=== PATIENT | female | born 1990 | race African-American/Black ===

== ENCOUNTER 2018-01-09 19:17 | Emergency (ER) | payer OTHER ==
[~2018-01-09] VITALS: Ht 172.7 cm; Wt 70.3 kg
[~2018-01-09 19:17] MED LIST: PRENATAL PO
[2018-01-09 19:25] VITALS: BP 122/84
[2018-01-09 19:43] LABS: URINE BILIRUBIN NEGATIVE (Negative); URINE BLOOD 1+ (Negative); URINE CLARITY CLEAR; URINE COLOR YELLOW; URINE GLUCOSE-RANDOM* NEGATIVE (Negative); URINE KETONES TRACE (Negative); URINE NITRITE-REFLEX NEGATIVE (Negative); URINE PROTEIN (DIPSTICK) NEGATIVE (Negative); URINE UROBILINOGEN 0.2 E.U./dl (0.2-1.0)
[2018-01-09 19:45] LABS: URINE LEUKOCYTES-REFLEX 3+ (Negative)
[2018-01-09 19:49] LABS: SQUAMOUS 0-3 Few /LPF (0-3); URINE WBC-REFLEX 6-15 Few /HPF (0-5)
[2018-01-09 19:50] LABS: BACTERIA-REFLEX 1-9 Few /HPF (None Seen); CASTS None Seen /LPF (None Seen); CRYSTALS None Seen /LPF (None Seen); URINE RBC 0-2 Rare /HPF (0-2)
[2018-01-09 20:22] LABS: ABSOLUTE NEUTROPHILS 13.4 thou/uL (1.4-8.2); BASOPHILS 0.3 % (0.0-2.0); EOSINOPHILS 0.3 % (0.0-3.0); HEMATOCRIT 31.8 % (37.0-47.0); LYMPHOCYTES 7.9 % (24.0-44.0); MCH 29.6 pg (26.0-34.0); MCHC 34.5 g/dL (28.0-37.0); MCV 85.6 fL (80.0-100.0); MONOCYTES 7.6 % (1.0-8.0); PLATELET COUNT 243 thou/uL (150-400); POLYS 83.9 % (36.0-66.0); RBC 3.72 mil/uL (4.20-5.00); RDW 12.6 % (10.5-14.5)
[2018-01-09 20:26] LABS: CALCIUM 9.2 mg/dL (8.5-10.1); CREATININE 0.5 mg/dL (0.6-1.0); POTASSIUM 3.4 mmol/L (3.5-5.1)
[2018-01-09 20:32] LABS: ALBUMIN 2.9 g/dL (3.4-5.0); TOTAL BILIRUBIN 0.5 mg/dL (<0.1-1.0); TOTAL PROTEIN 6.9 g/dL (6.4-8.2)
[2018-01-09 22:42] VITALS: BP 128/70
== END 2018-01-09 22:43 | disposition short-term general hospital (02) ==
LOC: EDBD 19:17 → ER 19:17 → EROBS 20:54
PROVIDERS: Physician Assistant
DX: O23.12 Infections of bladder in pregnancy, second trimester (principal); Z3A.16 16 weeks gestation of pregnancy; N12 Tubulo-interstitial nephritis, not specified as acute or chronic; O26.892 Other specified pregnancy related conditions, second trimester; M62.830 Muscle spasm of back; R00.0 Tachycardia, unspecified

== ENCOUNTER 2019-04-14 16:54 | Emergency (ER) | payer OTHER ==
[~2019-04-14] VITALS: Ht 170.2 cm; Wt 64.4 kg
[2019-04-14] MEDS ORDERED: IBUPROFEN 600600 M1 PO (19:59)
[2019-04-14 20:56] VITALS: BP 125/77
== END 2019-04-14 21:10 | disposition home or self-care (01) ==
LOC: ER 16:54
DX: S39.012A Strain of muscle, fascia and tendon of lower back, initial encounter (principal); S29.012A Strain of muscle and tendon of back wall of thorax, initial encounter; S50.12XA Contusion of left forearm, initial encounter; S50.11XA Contusion of right forearm, initial encounter; J45.909 Unspecified asthma, uncomplicated; Z86.2 Personal history of diseases of the blood and blood-forming organs and certain disorders involving the immune mechanism; Z91.018 Allergy to other foods; Y04.2XXA Assault by strike against or bumped into by another person, initial encounter; Y92.89 Other specified places as the place of occurrence of the external cause; Y93.89 Activity, other specified; Y99.8 Other external cause status